=== PATIENT | male | born 1985 | race Caucasian/White ===

== ENCOUNTER 2016-12-22 20:33 | Emergency (ER) | payer SELFPAY ==
[2016-12-22] MEDS ORDERED: LORazepam 1 MG TAB PO ONE (22:13)
--- NOTE | 2016-12-22 22:13 | EDPHY ---
H & P Stated Complaint: visual hallucinations; caregivers concerned about mental status Source: Patient Exam Limitations: No limitations - Personal History Current Tetanus/Diphtheria Vaccine: Yes - Medical/Surgical History Hx Asthma: No Hx Chronic Respiratory Disease: No Hx Diabetes: No Hx Cardiac Disease: Yes Hx Renal Disease: No Hx Cirrhosis: No Hx Alcoholism: No Hx HIV/AIDS: No Hx Splenectomy or Spleen Trauma: No Other PMH: PMHx: ADD. PSHx: septal repair at [age] week of age - Family History Significant Family History: No pertinent family hx - Social History Smoking Status: Never smoked Alcohol Use: Sober Drug Use: None Time Seen by Provider: 12/22/16 21:54 HPI/ROS: CHIEF COMPLAINT: Medication reaction HISTORY OF PRESENT ILLNESS: Patient is a 31-year-old man who comes to the emergency department brought by his 2 friends/landlords . Patient is very anxious and states that he was hallucinating today. This morning around 5:00 a.m. was paranoid that someone was in the house. Around noon he felt like the "logic of the world was distorted" and so he called police. He continued to seem extremely anxious throughout the day. Around 5:00 p.m. he was sleeping and landlord's states that he was sleeping very hard and they are concerned because they could not wake him up. There daughter who is in medical school told them that it would be dangerous to let him sleep unsupervised. The patient states that he takes Vyvanse daily and sees a psychiatrist for ADD. He occasionally takes an extra dose. He took 2 doses yesterday but has not taken any today. He states that this is never happened to him before he recently returned from [place]. He denies any recent illness. 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 REVIEW OF SYSTEMS: Constitutional: denies: chills, fever, recent illness, recent injury EENTM: denies: blurred vision, double vision, nose congestion Respiratory: denies: cough, shortness of breath Cardiac: denies: chest pain, irregular heart rate, lightheadedness, palpitations Gastrointestinal/Abdominal: denies: abdominal pain, diarrhea, nausea, vomiting, blood streaked stools Genitourinary: denies: dysuria, frequency, hematuria, pain Musculoskeletal: denies: joint pain, muscle pain Skin: denies: lesions, rash, jaundice, bruising Neurological: denies: headache, numbness, paresthesia, tingling, dizziness, weakness Hematologic/Lymphatic: denies: blood clots, easy bleeding, easy bruising Immunologic/allergic: denies: HIV/AIDS, transplant EXAM: GENERAL: Anxious, mildly tachycardic triage, well-nourished and in no acute distress. HEAD: Atraumatic, normocephalic. EYES: Pupils equal round and reactive to light, extraocular movements intact, sclera anicteric, conjunctiva are normal. ENT: TMs normal, nares patent, oropharynx clear without exudates. Moist mucous membranes. NECK: Normal range of motion, supple without lymphadenopathy or JVD. LUNGS: Breath sounds clear to auscultation bilaterally and equal. No wheezes rales or rhonchi. HEART: Regular rate and rhythm without murmurs, rubs or gallops. ABDOMEN: Soft, nontender, normoactive bowel sounds. No guarding, no rebound. No masses appreciated. BACK: No CVA tenderness, no spinal tenderness, step-offs or deformities EXTREMITIES: Normal range of motion, no pitting or edema. No clubbing or cyanosis. NEUROLOGICAL: Cranial nerves II through XII grossly intact. Normal speech, normal gait. 5/5 strength, normal movement in all extremities, normal sensation PSYCH: Anxious, paranoid, hallucinating SKIN: Warm, dry, normal turgor, no visible rashes or lesions. (David Burks) Constitutional: Initial Vital Signs Temperature (C) 36.9 C 12/22/16 20:38 Heart Rate 127 H 12/22/16 20:38 Respiratory Rate 18 12/22/16 20:38 Blood Pressure 112/75 12/22/16 20:38 O2 Sat (%) 95 12/22/16 20:38 O2 Delivery Mode Room Air Allergies/Adverse Reactions: No Known Allergies Allergy (Unverified 05/25/11 13:12) Home Medications: Medication Instructions Recorded Lisdexamfetamine Dimesylate 70 mg PO DAILY 12/22/16 [Vyvanse] Medical Decision Making - Diagnostics EKG Interpretation: An EKG obtained and was read and documented in trace view. Please see trace view for full reading and report. Sinus rhythm, no interval abnormalities, poor baseline (David Burks) ED Course/Re-evaluation: 2:15 a.m. the patient has been evaluated by Mental Health. They feel that he is high would like to re-evaluate him in the morning. His urine tox is negative. He did begin to admit to them that he took something at a libertarian but would not complete his sentence or story. He did mention something to them about cocaine. The patient has slept well through the night after his 2nd dose of Ativan. His vital signs are stable. We await re-evaluation in the morning. Care transferred to Dr. Arley Gonzales at shift change. (David Burks) Differential Diagnosis: Partial list of the Differential diagnosis considered include but were not limited to; stimulant overdose, polysubstance abuse, anxiety, intentional overdose, manic, and although unlikely based on the history and physical exam, I also considered schizophrenic, infectious. (David Burks) Other Provider: Care assumed from Dr. Burks at 7:00 a.m. with psychiatric evaluation in progress. 940: Patient no longer psychotic, mental health hold was vacated by Dr. Aneudy Degroot, evan for discharge. Currently does not meet criteria for mental health hold. Thought possibly due to overusing his Vyvanse. (Arley Gonzales ) - Data Points Laboratory Results: Laboratory Results 12/22/16 22:18 12/22/16 22:18 Medications Given: Discontinued Medications Lorazepam (Ativan) 2 mg PO EDNOW ONE Stop: 12/22/16 22:14 Last Admin: 12/22/16 22:31 Dose: 2 mg Lorazepam (Ativan) 2 mg PO EDNOW ONE Stop: 12/23/16 02:35 Last Admin: 12/23/16 06:20 Dose: Not Given Departure - Departure Disposition: Home, Routine, Self-Care Clinical Impression: Acute psychosis Condition: Good Instructions: Brief Psychotic Disorder (ED) Referrals: David Manjarrez MD [Medical Doctor] - As per Instructions
[2016-12-22 22:29] LABS: ADD DIFF? NO; ADD MORPH? NO; ADD SCAN? NO; ATYPICAL LYMPHOCYTE FLAG 0 (0-99); FRAGMENT RBC FLAG 0 (0-99); HEMATOCRIT 40.8 % (40.0-51.0); HEMOGLOBIN 14.9 g/dL (13.7-17.5); LEFT SHIFT FLG 0 (0-99); LIPEMIA HEMOLYSIS FLAG 90 (0-99); MEAN CELL HEMOGLOBIN 32.3 pg (27.9-34.1); MEAN CELL HEMOGLOBIN CONCENTR. 36.5 g/dL (32.4-36.7); MEAN CELL VOLUME 88.5 fL (81.5-99.8); MEAN PLATELET VOLUME 9.3 fL (8.7-11.7); PLATELET CLUMPS FLAG 10 (0-99); PLATELET COUNT 396 10^3/uL (150-400); RED BLOOD CELL COUNT 4.61 10^6/uL (4.40-6.38); RED CELL DISTRIBUTION WIDTH 11.5 % (11.5-15.2)
--- NOTE | 2016-12-22 22:29 | CPEKG ---
Heart Rate: 84 RR Interval: 714 P-R Interval: 164 QRSD Interval: 72 QT Interval: 360 QTC Interval: 426 P [place]: 81 QRS [place]: 50 T Wave [place]: 14 EKG Severity - NORMAL ECG - EKG Impression: SINUS RHYTHM Electronically Signed By: David Burks 22-Dec-2016 22:39:05
[2016-12-22 22:37] LABS: ANION GAP 13 mEq/L (8-16); CALCIUM 10.4 mg/dL (8.5-10.4); CARBON DIOXIDE 23 mEq/l (22-31); CHLORIDE 101 mEq/L (97-110); CREATININE 0.8 mg/dL (0.7-1.3); ETHANOL SERUM < 10 mg/dL (0-10); GLOMERULAR FILTRATION RATE > 60; GLUCOSE 84 mg/dL (70-100); POTASSIUM 4.2 mEq/L (3.5-5.2); SALICYLATE < 1.0 mg/dL (2.0-20.0); SODIUM 137 mEq/L (134-144)
[2016-12-23 02:24] VITALS: RESP 16
[2016-12-23] MEDS ORDERED: LORazepam 1 MG TAB PO ONE (02:34)
[2016-12-23 08:51] VITALS: TEMP 97.7
[2016-12-23 09:50] VITALS: BP 127/84; PULSE 100; O2SAT 94
== END 2016-12-23 09:48 | disposition home or self-care (01) ==
DX: F23 Brief psychotic disorder (principal)
CPT/HCPCS: 80305; G0480